=== PATIENT | female | born 1995 | race Asian ===

== ENCOUNTER 2024-03-30 07:44 | Inpatient (IN) | payer BC, MEDICAID ==
[2024-03-30] MEDS ORDERED: ePHEDrine Sulfate 50 MG/10 ML VIAL ONE (08:00)
[2024-03-30] MEDS ORDERED: Bupivacaine/Epinephrine 0.25% 30 ML VIAL ONE (08:00)
[2024-03-30] MEDS ORDERED: Bupivacaine PF 0.5% 30 ML VIAL ONE (08:00)
[2024-03-30 08:19] VITALS: BMI 25.6
[2024-03-30 08:34] LABS: Fetal Membranes Rupture No Membranes Rupture (No Rupture)
[2024-03-30] MEDS ORDERED: hydrALAZINE 20 MG/ML VIAL SLOW IVP PRN ×2 (08:42→11:11)
[2024-03-30] MEDS: Acetaminophen 500 MG TAB PO SCH (08:53)
[2024-03-30] MEDS ORDERED: Ondansetron PF 4 MG/2 ML Vial IVP PRN ×2 (11:11→16:27)
[2024-03-30] MEDS ORDERED: Tranexamic Acid 1,000 MG/10 ML VIAL IVP PRN (11:11)
[2024-03-30] MEDS ORDERED: Lidocaine 1% (PF) 30 ML VIAL SC PRN (11:11)
[2024-03-30] MEDS ORDERED: Promethazine HCl 25 MG/ML VIAL IM PRN ×2 (11:11→16:27)
[2024-03-30] MEDS ORDERED: Misoprostol 200 MCG TAB PR PRN (11:11)
[2024-03-30] MEDS ORDERED: Carboprost 250 MCG/ML AMP IM PRN (11:11)
[2024-03-30] MEDS ORDERED: Ibuprofen 800 MG TAB PO PRN (11:11)
[2024-03-30] MEDS ORDERED: Methylergonovine 0.2 MG/ML VIAL IM PRN (11:11)
[2024-03-30 11:48] LABS: Mean Corpuscular HGB CONC 30.8 g/dL (32.0-36.0); Mean Corpuscular Hemoglobin 24.8 pg (27.0-33.0); Mean Corpuscular Volume 80.6 fL (81.6-98.3); Mean Platelet Volume 8.9 fL (7.4-10.4); Platelet Count 299 10x3/uL (150-450); RBC Distribution Width 21.6 % (11.5-14.5); Red Blood Cell (RBC) Count 4.84 10x6/uL (3.90-5.03); White Blood Cell (WBC) Count 8.2 10x3/uL (3.5-10.5)
[2024-03-30 12:22] LABS: HBsAg Index 0.19 S/CO (0-0.99); Hep B Surf Ag - L&D Non-Reactive S/CO (NonReactive); Syphilis Antibody Nonreactive (Nonreactive); Syphilis Antibody Index 0.05 S/CO (<1.00 Non-Reactive)
[2024-03-30] MEDS: Lactated Ringer's 1,000 ML IV SCH (16:00)
[2024-03-30] MEDS: fentaNYL/Ropivacaine Epidural 100 ML ONE (16:00)
[2024-03-30] MEDS ORDERED: Moisturizing Cream (Eucerin) 113 GM JAR TOP PRN (16:27)
[2024-03-30] MEDS ORDERED: Lactated Ringer's 500 ML IV PRN (16:27)
[2024-03-30] MEDS ORDERED: ePHEDrine Sulfate 50 MG/10 ML VIAL SLOW IVP PRN (16:27)
[2024-03-30] MEDS ORDERED: diphenhydrAMINE 50 MG/ML VIAL IVP PRN (16:27)
[2024-03-30] MEDS ORDERED: Acetaminophen 325 MG TAB PO PRN (16:27)
[2024-03-30] MEDS ORDERED: Naloxone HCl 0.4 mg/ml Vial IVP PRN ×2 (16:27)
[2024-03-30] MEDS ORDERED: Communication Order-Pharmacy FS SCH (16:30)
[2024-03-31] MEDS: fentaNYL 2 mcg/Ropivacaine 0.2% Epidural 100 ML CADD EPIDURAL SCH (01:53)
[2024-03-31] MEDS: Oxytocin 30 units/NS 500 ML 500 ML IV SCH (02:35)
[2024-03-31] MEDS ORDERED: hydrALAZINE 20 MG/ML VIAL SLOW IVP PRN (05:00)
[2024-03-31] MEDS ORDERED: Bisacodyl 10 MG SUPP PR PRN (05:00)
[2024-03-31] MEDS ORDERED: Preparation H Ointment 28 GM TUBE PR PRN (05:00)
[2024-03-31] MEDS ORDERED: Milk Of Magnesia 30 ML UDCUP PO PRN (05:00)
[2024-03-31] MEDS ORDERED: Lanolin Ointment 7 GM TUBE TOP PRN (05:00)
[2024-03-31] MEDS: Benzocaine-Menthol 82.5 ML CAN TOP PRN (06:11)
[2024-03-31] MEDS: Ibuprofen 800 MG TAB PO SCH (06:11)
[2024-03-31] MEDS: Ferrous Sulfate 325 MG TAB PO SCH (08:45)
[2024-03-31] MEDS: Polyethylene Glycol 3350 17 GM Packet PO SCH (08:45)
[2024-03-31] MEDS: Docusate 100 MG CAP PO SCH (08:46)
[2024-03-31] MEDS: Boostrix 0.5 ML (Tdap) VIAL (>/=7 yrs of age) IM ONE (19:07)
[2024-04-01 07:34] VITALS: BP 113/73; TEMP 97.8
== END 2024-04-01 18:40 | disposition home or self-care (01) | DRG 807 ==
LOC: CSHLD/OP 07:44 → CSHLD 12:35 → CSHPP 03-31 04:50
PROVIDERS: ADMIT Student in an Organized Health Care Education/Training Program; ATTEND Student in an Organized Health Care Education/Training Program
PROC: 10907ZC Drainage of Amniotic Fluid, Therapeutic from Products of Conception, Via Natural or Artificial Opening (ICD-10-PCS; 2024-03-30)
PROC: 10D07Z6 Extraction of Products of Conception, Vacuum, Via Natural or Artificial Opening (ICD-10-PCS; principal; 2024-03-31)
PROC: 0KQM0ZZ Repair Perineum Muscle, Open Approach (ICD-10-PCS; 2024-03-31)
DX: O36.5930 Maternal care for other known or suspected poor fetal growth, third trimester, not applicable or unspecified (principal); Z37.0 Single live birth; O76 Abnormality in fetal heart rate and rhythm complicating labor and delivery; Z3A.37 37 weeks gestation of pregnancy; O70.1 Second degree perineal laceration during delivery; O99.02 Anemia complicating childbirth; O77.0 Labor and delivery complicated by meconium in amniotic fluid
CPT/HCPCS: 36415; 51702; 84112; 85027; 86780; 86850; 86900; 86901; 87340; 88307; 99285; J0665; J2590; J7120